=== PATIENT | male | born 1975 | race Asian ===

== ENCOUNTER 2024-10-25 12:42 | Emergency (ER) | payer MEDICAID ==
[~2024-10-25] VITALS: Ht 177.8 cm; Wt 109.0 kg
[2024-10-25 12:46] VITALS: BP 137/78; PULSE 78; RESP 16; TEMP 36.8; O2SAT 99
== END 2024-10-25 13:37 ==
LOC: ER 13:08
DX: R07.89 Other chest pain (principal); Z02.89 Encounter for other administrative examinations
CPT/HCPCS: 99283